=== PATIENT | male | born 1990 | race African-American/Black ===

== ENCOUNTER 2017-11-12 14:41 | Emergency (ER) | payer BC ==
[2017-11-12 14:52] VITALS: BP 131/66
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
[2017-11-12] MEDS ORDERED: ONDANSETRON HCL INJ/PF 4 MG/2 ML SDV IV ONE (15:37)
[2017-11-12] MEDS ORDERED: NORMAL SALINE 1000 ML 1,000 ML IV ONE (15:37)
== END 2017-11-12 15:36 | disposition home or self-care (01) ==
LOC: ER 14:41
DX: T23.171A Burn of first degree of right wrist, initial encounter (principal); X03.0XXA Exposure to flames in controlled fire, not in building or structure, initial encounter; F17.210 Nicotine dependence, cigarettes, uncomplicated
CPT/HCPCS: 99283